=== PATIENT | female | born 1960 | race Caucasian/White ===

== ENCOUNTER → 2024-06-08 14:12 | Outpatient (REF) | payer OTHER, SELFPAY | LOC: HWRAD 14:12 | PROVIDERS: ATTENDING PHYSICIAN Urology; FAMILY PHYSICIAN Family Medicine | DX: N32.81 Overactive bladder (principal); N81.10 Cystocele, unspecified; M62.89 Other specified disorders of muscle; R39.198 Other difficulties with micturition | CPT/HCPCS: 76770 ==